=== PATIENT | female | born 1955 | race Caucasian/White ===

== ENCOUNTER 2022-07-22 11:18 | Outpatient (CLI) | payer MEDICARE | END 2022-07-22 11:19 | disposition home or self-care (01) | LOC: BICMAMMO 11:18 | PROVIDERS: ATTEND Obstetrics & Gynecology | DX: Z12.31 Encounter for screening mammogram for malignant neoplasm of breast (principal); Z98.82 Breast implant status; Z80.3 Family history of malignant neoplasm of breast | CPT/HCPCS: 77063; 77067 ==

== ENCOUNTER 2023-09-08 10:38 | Outpatient (CLI) | payer MEDICARE | END 2023-09-08 10:39 | disposition home or self-care (01) | LOC: BICMAMMO 10:38 | PROVIDERS: ATTEND Family Medicine | DX: Z12.31 Encounter for screening mammogram for malignant neoplasm of breast (principal); Z13.820 Encounter for screening for osteoporosis; N63.42 Unspecified lump in left breast, subareolar; M85.851 Other specified disorders of bone density and structure, right thigh; M85.852 Other specified disorders of bone density and structure, left thigh; Z91.89 Other specified personal risk factors, not elsewhere classified; Z98.82 Breast implant status; Z80.3 Family history of malignant neoplasm of breast | CPT/HCPCS: 77063; 77067; 77080 ==

== ENCOUNTER 2023-09-14 10:31 | Outpatient (CLI) | payer MEDICARE | END 2023-09-14 10:32 | disposition home or self-care (01) | LOC: BICULT 10:31 | PROVIDERS: ATTEND Family Medicine | DX: N63.42 Unspecified lump in left breast, subareolar (principal); N60.02 Solitary cyst of left breast ==

== ENCOUNTER 2024-09-09 10:04 | Outpatient (CLI) | payer MEDICARE | END 2024-09-09 10:05 | disposition home or self-care (01) | LOC: BICMAMMO 10:04 | PROVIDERS: ATTEND Family Medicine | DX: Z12.31 Encounter for screening mammogram for malignant neoplasm of breast (principal); Z80.3 Family history of malignant neoplasm of breast; Z98.82 Breast implant status; Z91.89 Other specified personal risk factors, not elsewhere classified | CPT/HCPCS: 77063; 77067 ==

== ENCOUNTER 2024-10-11 09:53 | Outpatient (CLI) | payer MEDICARE | END 2024-10-11 09:54 | disposition home or self-care (01) | LOC: MRI 09:53 | PROVIDERS: ATTEND Specialist | DX: M47.26 Other spondylosis with radiculopathy, lumbar region (principal); K80.20 Calculus of gallbladder without cholecystitis without obstruction | CPT/HCPCS: 72148 ==

== ENCOUNTER 2025-09-11 11:17 | Outpatient (CLI) | payer MEDICARE | END 2025-09-11 11:18 | disposition home or self-care (01) | LOC: BICMAMMO 11:17 | PROVIDERS: ATTEND Family Medicine | DX: Z12.31 Encounter for screening mammogram for malignant neoplasm of breast (principal); Z78.0 Asymptomatic menopausal state; M85.851 Other specified disorders of bone density and structure, right thigh; M85.852 Other specified disorders of bone density and structure, left thigh; Z80.3 Family history of malignant neoplasm of breast; Z85.828 Personal history of other malignant neoplasm of skin; Z98.82 Breast implant status; Z91.89 Other specified personal risk factors, not elsewhere classified | CPT/HCPCS: 77063; 77067; 77080 ==

== ENCOUNTER 2025-11-14 09:30 | Day surgery (SDC) | payer MEDICARE ==
[2025-11-13 13:47] VITALS: BMI 26.0
[2025-11-14] MEDS ORDERED: Bacitracin Zinc Ointment 30 gm TUBE ONE (09:45)
[2025-11-14] MEDS ORDERED: Ondansetron PF 4 MG/2 ML Vial ONE (10:05)
[2025-11-14] MEDS ORDERED: fentaNYL PF 100 MCG/2 ML SYRINGE ONE (10:05)
[2025-11-14] MEDS ORDERED: PROPOFOL 20 ML ONE (10:05)
[2025-11-14] MEDS ORDERED: Lidocaine 1% PF 5 ML VIAL ONE (10:05)
[2025-11-14] MEDS ORDERED: CEFAZOLIN 2 GM VIAL ONE (10:07)
[2025-11-14 10:32] LABS: #Basophils 0.05 10x3/uL (0.0-0.2); #Eosinophils 0.06 10x3/uL (0.0-0.7); #Monocytes 0.55 10x3/uL (0.11-0.59); #Neutrophils 4.07 10x3/uL (1.40-6.50); %Basophils 0.8 % (0.0-1.0); %Eosinophils 0.9 % (0.0-10.0); %Lymphocytes 27.8 % (21.0-51.0); %Monocytes 8.4 % (0.0-10.0); %Neutrophils 61.8 % (42.0-75.0); Hematocrit 41.4 % (36.0-47.0); Hemoglobin 13.4 g/dL (12.0-16.0); Mean Corpuscular Hemoglobin 30.4 pg (27.0-31.0); Mean Corpuscular Volume 93.9 fL (78.0-98.0); Platelet Count 295 10x3/uL (130-400); Red Blood Cell (RBC) Count 4.41 mill/uL (4.20-5.40); White Blood Cell (WBC) Count 6.58 10x3/uL (4.8-10.8)
[2025-11-14] MEDS ORDERED: Ropivacaine 0.5% HCl/PF (150 MG/30 ML VIAL) ONE (11:07)
[2025-11-14] MEDS ORDERED: Ropivacaine 2% HCl/PF (20 MG/10 ML VIAL) ONE (11:10)
[2025-11-14] MEDS ORDERED: PROPOFOL 200 MG/20 ML VIAL ONE (11:30)
== END 2025-11-14 16:10 | disposition home or self-care (01) ==
LOC: SDC 09:30
PROVIDERS: ATTEND Orthopaedic Surgery Hand Surgery
PROC: 0RCW0ZZ Extirpation of Matter from Right Finger Phalangeal Joint, Open Approach (ICD-10-PCS; principal; 2025-11-14)
DX: M24.542 Contracture, left hand (principal); E78.00 Pure hypercholesterolemia, unspecified; J30.2 Other seasonal allergic rhinitis; M15.4 Erosive (osteo)arthritis; Z90.710 Acquired absence of both cervix and uterus
CPT/HCPCS: 26445 ×3; 26525 ×3; 64415; 85025; J0702; J1100; J2405; J2704; J2795 ×2; J3010; 88305; 93005; 93010; J0665